=== PATIENT | male | born 1990 | race Caucasian/White ===

== ENCOUNTER → 2016-11-23 | Outpatient (REF) ==
[~2016-11-23] MED LIST: AMOXICILLIN 8751 TAB PO; NO HOME MEDICATIONS
== END ==
LOC: WSOH 12:22
DX: Z11.1 Encounter for screening for respiratory tuberculosis (principal)

== ENCOUNTER → 2016-12-11 | Outpatient (REF) | LOC: WSOH 12-09 10:11 | DX: Z00.00 Encounter for general adult medical examination without abnormal findings (principal) ==

== ENCOUNTER 2019-08-30 16:31 | Emergency (ER) | payer OTHER ==
[~2019-08-30] VITALS: Ht 172.7 cm; Wt 86.4 kg
[2019-08-30 17:07] VITALS: BP 127/88; TEMP 98.5
[2019-08-30 20:02] VITALS: PULSE 48
== END 2019-08-30 20:00 | disposition home or self-care (01) ==
LOC: COL.ER 16:31
DX: S81.811A Laceration without foreign body, right lower leg, initial encounter (principal); W22.8XXA Striking against or struck by other objects, initial encounter; Y92.39 Other specified sports and athletic area as the place of occurrence of the external cause

== ENCOUNTER → 2019-09-13 | Outpatient (CLI) | payer OTHER ==
[2019-09-13 10:28] VITALS: BP 137/93; PULSE 48; TEMP 98.1
== END ==
LOC: COL.ER 10:12
DX: S81.811D Laceration without foreign body, right lower leg, subsequent encounter (principal); X58.XXXD Exposure to other specified factors, subsequent encounter